=== PATIENT | male | born 1995 | race Caucasian/White ===

== ENCOUNTER 2018-03-08 20:42 | Emergency (ER) | payer OTHER ==
[2018-03-08 21:13] VITALS: O2SAT 99
[2018-03-08 21:40] LABS: Appearance CLEAR (CLEAR); Bilirubin NEGATIVE (NEGATIVE); Blood NEGATIVE Ery/ul (0-5); Glucose NEGATIVE (NEGATIVE); Ketones NEGATIVE (NEGATIVE); Leukocyte Esterase NEGATIVE (NEGATIVE); Nitrite NEGATIVE (NEGATIVE); Protein,Urine Dip NEGATIVE (Negative); Urobilinogen NORMAL mg/dL (0-1)
[2018-03-08] MEDS ORDERED: Sodium Chloride 0.9% 1000 ML 1,000 ML IV STA (22:28)
[2018-03-08] MEDS ORDERED: Sodium Chloride 0.9% 1000 ML 1,000 ML ONE (22:41)
[2018-03-08 23:02] LABS: Lactic Acid 1.9 (0.4-2.0)
[2018-03-08 23:09] LABS: ALBUMIN 4.5 g/dL (3.5-5.0); ALKALINE PHOSPHATASE 116 U/L (38-126); ANION GAP 18.8 MEQ/L (5-15); BLOOD UREA NITROGEN 6 mg/dL (9-20); CHLORIDE 104 mmol/L (98-107); Calcium 9.3 mg/dL (8.4-10.2); Carbon Dioxide 27 mmol/L (22-30); Glucose 109 mg/dL (74-106); LIPASE 211 U/L (23-300); Potassium 3.8 mmol/L (3.5-5.1); SGOT/AST 125 U/L (17-59); SGPT/ALT 150 U/L (0-50); SODIUM 146 mmol/L (137-145); Total Protein 7.4 g/dL (6.3-8.2)
[2018-03-08 23:23] LABS: BASOPHIL % 0.5 % (0.0-0.4); Basophil (Absolute #) 0.04 (0-0.4); Eosinophil (Absolute #) 0.24 (0-0.5); Granulocyte Absolute (ANC) 3.68 (1.4-6.9); Granulocytes % 46.1 % (36.0-66.0); Hematocrit 51.5 % (42-50); Hemoglobin 19.2 gm/dl (12.5-18.0); Lymphocytes % 41.3 % (24.0-44.0); Mean Corpuscular Hemoglobin 37.6 pg (26-32); Mean Platelet Volume 10.1 fl (6-9.5); Monocyte (Absolute #) 0.73 (0.0-1.3); Monocytes % 9.1 % (0.0-12.0); Platelet Count 196 K/mm3 (150-450); Red Cell Distribution Width 13.6 % (11.5-14.0)
[2018-03-08 23:28] LABS: Mean Corpuscular Hgb Concent. 37.3 g/dl (32-36)
--- NOTE | 2018-03-09 00:15 | ERPHSYRPT ---
- History of Present Illness Time Seen by Provider: 03/08/18 21:46 Historian: patient Exam Limitations: no limitations Patient Subjective Stated Complaint: Pt arrives to ER with c/o penis pain that began around 1000 today. Denies injury to area. Denies possiblity of STD. Denies dysuria or pain to palpation. States just randomly hurts "on the shaft and the head". Denies d/c, fever or any other sx. Triage Nursing Assessment: see above Physician History: Pt started c/o suprapubic pain, pressure since 10 AM today. He denies urinary complaints, nausea, vomiting, diarrhea, but states, his symptoms started after having one loose BM, however denies bloody or black stools. He also denies fever , chills, no urethral discharge, he states, he did not have sex for 2 years. Timing/Duration: today, hour(s) (12) Activities at Onset: none Quality: dullness Abdominal Pain Onset Location: suprapubic Pain Radiation: no radiation Severity of Pain-Max: moderate Severity of Pain-Current: moderate Modifying Factors: Improves With: nothing Associated Symptoms: denies symptoms Previous symptoms: no prior history Allergies/Adverse Reactions: No Known Drug Allergies Allergy (Verified 03/08/18 21:13) - Review of Systems Constitutional: No Symptoms Abdominal/Gastrointestinal: Abdominal Pain All Other Systems: Reviewed and Negative - Past Medical History Pertinent Past Medical History: Yes Psycho-Social History: Depression - Past Surgical History Past Surgical History: Yes - Social History Smoking Status: Current some day smoker Exposure to second hand smoke: Yes Alcohol Use: Socially Drug Use: none Patient Lives Alone: No Significant Family History: no pertinent family hx - Nursing Vital Signs Nursing Vital Signs: Initial Vital Signs Temperature 98.2 F 03/08/18 21:08 Pulse Rate 109 H 03/08/18 21:08 Respiratory Rate 18 03/08/18 21:08 Blood Pressure 136/97 03/08/18 21:08 O2 Sat by Pulse Oximetry 99 03/08/18 21:08 Pain Scale Pain Intensity 6 - Physical Exam General Appearance: no apparent distress Eye Exam: eyes nml inspection Ears, Nose, Throat Exam: normal ENT inspection, moist mucous membranes Neck Exam: normal inspection, non-tender Respiratory Exam: normal breath sounds, lungs clear, No chest tenderness Cardiovascular Exam: regular rate/rhythm, normal heart sounds, normal peripheral pulses, No murmur Gastrointestinal/Abdomen Exam: soft, normal bowel sounds, tenderness (mild, suprapubic), hernia (small, umbilical, nontender), No distention, No mass, No guarding, No ecchymosis Male Genitalia Exam: normal genitalia, No hernia, No testicular tenderness, No testicular mass, No penile lesion, No penile discharge Rectal Exam: normal exam, normal rectal tone, No mass, No hemorrhoids, No black stool, No blood, No tenderness Extremity Exam: normal inspection, No calf tenderness Neurologic Exam: alert, oriented x 3, cooperative, normal mood/affect Skin Exam: normal color, warm, dry, No rash Lymphatic Exam: No adenopathy SpO2 Interpretation: normal SpO2: 99 Oxygen Delivery: Room Air - Course Nursing assessment & vital signs reviewed: Yes - CT Exams Abdomen/Pelvis CT Interpretation: Negative, Tele-radiologist Report Ordered Tests: Active Orders 24 hr Category Date Time Status Clean Catch Urine Specimen STAT Care 03/08/18 21:16 Active IV Insertion STAT Care 03/08/18 22:28 Active ABDOMEN AND PELVIS W CONTRAST [CT] Stat Exams 03/08/18 22:28 Taken CBC W DIFF Stat Lab 03/08/18 22:40 Completed CMP Stat Lab 03/08/18 22:40 Completed LIPASE Stat Lab 03/08/18 22:40 Completed Lactic Acid Stat Lab 03/08/18 22:28 Results UA W/RFX UR CULTURE Stat Lab 03/08/18 21:34 Completed Medication Summary Discontinued Medications Generic Name Dose Route Start Last Admin Trade Name Luis Angel PRN Reason Stop Dose Admin Sodium Chloride 1,000 mls @ 999 mls/hr 03/08/18 22:28 03/08/18 22:45 Sodium Chloride 0.9% 1000 Ml IV 03/08/18 23:28 999 mls/hr .Q1H1M STA Administration Sodium Chloride Confirm 03/08/18 22:41 Sodium Chloride 0.9% 1000 Ml Administered 03/08/18 22:42 Dose 1,000 mls @ ud .ROUTE .STK-MED ONE Lab/Rad Data: Laboratory Result Diagrams 03/08/18 22:40 03/08/18 22:40 Laboratory Results 03/08/18 03/08/18 03/08/18 Range/Units 22:40 22:40 22:28 WBC 8.0 (4.0-10.5) K/mm3 RBC 5.10 (4.1-5.6) M/mm3 Hgb 19.2 H (12.5-18.0) gm/dl Hct 51.5 H (42-50) % MCV 101.0 H (78-100) fl MCH 37.6 H (26-32) pg MCHC 37.3 H (32-36) g/dl RDW 13.6 (11.5-14.0) % Plt Count 196 (150-450) K/mm3 MPV 10.1 H (6-9.5) fl Gran % 46.1 (36.0-66.0) % Eos # (Auto) 0.24 (0-0.5) Absolute Lymphs (auto) 3.30 (1.0-4.6) Absolute Monos (auto) 0.73 (0.0-1.3) Lymphocytes % 41.3 (24.0-44.0) % Monocytes % 9.1 (0.0-12.0) % Eosinophils % 3.0 (0.00-5.0) % Basophils % 0.5 (0.0-0.4) % Absolute Granulocytes 3.68 (1.4-6.9) Basophils # 0.04 (0-0.4) Sodium 146 H (137-145) mmol/L Potassium 3.8 (3.5-5.1) mmol/L Chloride 104 (98-107) mmol/L Carbon Dioxide 27 (22-30) mmol/L Anion Gap 18.8 H (5-15) MEQ/L BUN 6 L (9-20) mg/dL Creatinine 0.80 (0.66-1.25) mg/dL Estimated GFR > 60.0 ML/MIN Glucose 109 H (74-106) mg/dL Lactic Acid 1.9 (0.4-2.0) Calcium 9.3 (8.4-10.2) mg/dL Total Bilirubin 1.20 (0.2-1.3) mg/dL AST 125 H (17-59) U/L ALT 150 H (0-50) U/L Alkaline Phosphatase 116 (38-126) U/L Serum Total Protein 7.4 (6.3-8.2) g/dL Albumin 4.5 (3.5-5.0) g/dL Lipase 211 (23-300) U/L Ur Collection Type Urine Color (YELLOW) Urine Appearance (CLEAR) Urine pH (5-6) Ur Specific Conway (1.005-1.025) Urine Protein (Negative) Urine Ketones (NEGATIVE) Urine Blood (0-5) Bill/ul Urine Nitrite (NEGATIVE) Urine Bilirubin (NEGATIVE) Urine Urobilinogen (0-1) mg/dL Ur Leukocyte Esterase (NEGATIVE) Urine Culture Reflexed (NO) Urine Glucose (NEGATIVE) mg/dL Specimen Received 03/08/18 Range/Units 21:34 WBC (4.0-10.5) K/mm3 RBC (4.1-5.6) M/mm3 Hgb (12.5-18.0) gm/dl Hct (42-50) % MCV (78-100) fl MCH (26-32) pg MCHC (32-36) g/dl RDW (11.5-14.0) % Plt Count (150-450) K/mm3 MPV (6-9.5) fl Gran % (36.0-66.0) % Eos # (Auto) (0-0.5) Absolute Lymphs (auto) (1.0-4.6) Absolute Monos (auto) (0.0-1.3) Lymphocytes % (24.0-44.0) % Monocytes % (0.0-12.0) % Eosinophils % (0.00-5.0) % Basophils % (0.0-0.4) % Absolute Granulocytes (1.4-6.9) Basophils # (0-0.4) Sodium (137-145) mmol/L Potassium (3.5-5.1) mmol/L Chloride (98-107) mmol/L Carbon Dioxide (22-30) mmol/L Anion Gap (5-15) MEQ/L BUN (9-20) mg/dL Creatinine (0.66-1.25) mg/dL Estimated GFR ML/MIN Glucose (74-106) mg/dL Lactic Acid (0.4-2.0) Calcium (8.4-10.2) mg/dL Total Bilirubin (0.2-1.3) mg/dL AST (17-59) U/L ALT (0-50) U/L Alkaline Phosphatase (38-126) U/L Serum Total Protein (6.3-8.2) g/dL Albumin (3.5-5.0) g/dL Lipase (23-300) U/L Ur Collection Type VOID Urine Color YELLOW (YELLOW) Urine Appearance CLEAR (CLEAR) Urine pH 6.0 (5-6) Ur Specific Conway 1.010 (1.005-1.025) Urine Protein NEGATIVE (Negative) Urine Ketones NEGATIVE (NEGATIVE) Urine Blood NEGATIVE (0-5) Bill/ul Urine Nitrite NEGATIVE (NEGATIVE) Urine Bilirubin NEGATIVE (NEGATIVE) Urine Urobilinogen NORMAL (0-1) mg/dL Ur Leukocyte Esterase NEGATIVE (NEGATIVE) Urine Culture Reflexed NO (NO) Urine Glucose NEGATIVE (NEGATIVE) mg/dL Specimen Received 03/08/180 - Progress Progress: unchanged Progress Note: 03/09/18 00:36 I explained all findings to patient and his mother, suggested to follow up with his physician next week, and possibly consult a surgeon regarding to his umbilical hernia. He is being discharged in good condition. Counseled pt/family regarding: lab results, diagnosis, need for follow-up, rad results - Departure Time of Disposition: 00:38 Departure Disposition: Home Clinical Impression: Abdominal pain Qualifiers: Abdominal location: lower abdomen, unspecified Qualified Code(s): R10.30 - Lower abdominal pain, unspecified Umbilical hernia Qualifiers: Obstruction and gangrene presence: without obstruction or gangrene Qualified Code(s): K42.9 - Umbilical hernia without obstruction or gangrene Condition: Stable Critical Care Time: No Referrals: JESSE OLMEDO TECHNICAL ILLUSTRATOR [Primary Care Provider] - Instructions: Umbilical Hernia, Adult Additional Instructions: Return if severe pain, vomiting or pain, fever> 102 F, otherwise follow up with your physician next week!
[2018-03-09 00:41] VITALS: BP 128/94; PULSE 98
--- NOTE | 2018-03-09 09:01 | XRAY ---
Indication: Suprapubic pain. No known injury. Multiple contiguous axial images obtained through the abdomen and pelvis using 80 cc Isovue 370 contrast only. Comparison: None Lung bases demonstrate minimal bilateral dependent atelectasis. No infiltrate or effusion. Heart is not enlarged. Noncontrasted stomach and bowel loops appear nonobstructed. Normal appendix. No free fluid/air. Mild diffuse fatty liver and 1 cm right adrenal adenoma. Remaining liver, gallbladder, pancreas, spleen, adrenal glands, kidneys, ureters, bladder, and aorta appear unremarkable. No pathologic retroperitoneal lymphadenopathy. Osseous structures intact. Bilateral L5 spondylolysis without spondylolisthesis. Small fatty umbilical hernia. Impression: 1. No acute intra-abdominal/pelvic abnormalities. 2. Incidental fatty liver, right adrenal adenoma, fatty umbilical hernia, and L5 spondylolysis without spondylolisthesis. Comment: Preliminary interpretation was made by [facility]. Incidental findings not reported. CT DI 14.21
== END 2018-03-09 00:48 | disposition home or self-care (01) ==
LOC: ED 20:42
DX: R10.30 Lower abdominal pain, unspecified (principal); K42.9 Umbilical hernia without obstruction or gangrene
CPT/HCPCS: 36000; 36415; 74177; 80053; 81002; 83605; 83690; 85025; 96374; 99284

== ENCOUNTER 2024-07-01 17:14 | Emergency (ER) | payer BC, OTHER ==
[2024-07-01 17:39] VITALS: BP 143/96; PULSE 105; TEMP 99.1
[2024-07-01 18:17] LABS: Absolute Neutrophil Ct (ANC) 4.02 x10^3/uL (1.78-5.38); BASOPHIL % 0.5 % (0.2-1.2); Basophil (Absolute #) 0.03 x10^3/uL (0.01-0.08); Eosinophil (Absolute #) 0.13 x10^3/uL (0.04-0.54); Hematocrit 43.8 % (40.1-51.0); Hemoglobin 15.7 g/dL (13.7-17.5); IMMATURE GRAN # 0.01 x10^3u/L (0.001-0.031); IMMATURE GRAN % 0.2 % (0.001-0.429); Lymphocyte (Absolute #) 1.86 x10^3/uL (1.32-3.57); Lymphocytes % 28.3 % (21.8-53.1); Mean Cell Volume 98.4 fL (79.0-92.2); Mean Corpuscular Hemoglobin 35.3 pg (25.7-32.2); Mean Corpuscular Hgb Concent. 35.8 g/dL (32.3-36.5); Mean Platelet Volume 8.9 fL (9.4-12.4); Monocyte (Absolute #) 0.52 x10^3/uL (0.30-0.82); Monocytes % 7.9 % (5.3-12.2); Neutrophil % 61.1 % (34.0-67.9); Platelet Count 188 x10^3/uL (163-337); Red Blood Count 4.45 x10^6/uL (4.63-6.08); Red Cell Distribution Width 13.3 % (11.6-14.4); White Blood Count 6.6 x10^3/uL (4.23-9.07)
--- NOTE | 2024-07-01 18:22 | ERPHSYRPT ---
- History of Present Illness Time Seen by Provider: 07/01/24 18:03 Source: patient, police Exam Limitations: no limitations Patient Subjective Stated Complaint: pt was pulled over and intoxicated so police brought him here for medical clearance to go to care home Triage Nursing Assessment: Pt brought to the ER by law enforcement, tachycardic, hypertensive, denies pain, daily drinker, pulses normal, skin n/w/d, walked into the ER with a steady gait and without assistance, no difficulties breathing, doesn't appear to be in any distress Physician History: Pt was brought in by police for alleged DUI clearance and has no medical complaints or symptoms. He denies SIHI, and denies any falls, MVA, trauma of any kind. Pt denies any other drug use or medications. He reports no suicidal ideations and there is no reason to suspect any ingestions. Pt does report alcohol consumption He has no abrasions or indications for trauma on exam . No LOC. PT has no neuro sensorimotor deficits . No pronator drift . No facial asymetry. 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 full ROm all ext without pain. normal strength. Fundi benign. Teeth intact HEENT normal. CHest clear nontender. Ht reg without M. Abd soft nontender without peritoneal signs. No chest pain or shortness of breath or dizziness. Timing/Duration: today Modifying Factors: Improves With: nothing Associated Symptoms: denies symptoms Allergies/Adverse Reactions: No Known Drug Allergies Allergy (Verified 07/01/24 17:38) Home Medications: No Reportable Medications [No Reported Medications] 07/01/24 [History] Hx Influenza Vaccination/Date Given: No Hx Pneumococcal Vaccination/Date Given: No Travel Risk - International Travel Have you traveled outside of the country in past 3 weeks: No - Emerging Infectious Disease Are you exhibiting symptoms associated with any current EIDs: No - Review of Systems Constitutional: No Fever, No Chills Eyes: No Symptoms Ears, Nose, & Throat: No Symptoms Respiratory: No Cough, No Dyspnea Cardiac: No Chest Pain, No Edema, No Syncope Abdominal/Gastrointestinal: No Abdominal Pain, No Nausea, No Vomiting, No Diarrhea Genitourinary Symptoms: No Dysuria Musculoskeletal: No Back Pain, No Neck Pain Skin: No Symptoms, No Rash Neurological: No Symptoms, No Dizziness, No Focal Weakness, No Sensory Changes Psychological: No Symptoms Endocrine: No Symptoms Hematologic/Lymphatic: No Symptoms Immunological/Allergic: No Symptoms All Other Systems: Reviewed and Negative - Past Medical History Pertinent Past Medical History: Yes Psycho-Social History: Depression - Past Surgical History Past Surgical History: Yes Significant Family History: no pertinent family hx - Social History Smoking Status: Current some day smoker Exposure to second hand smoke: Yes Alcohol Use: Socially Drug Use: none Patient Lives Alone: No - Social Determinants of Health Will the patient participate in the screening: Yes Do you worry about a steady place to live?: No Do you have any problems with any of the following?: No known problems In the past 12 months,have you had to go without utilities?: No Transportation Issues: No Has anyone in your support network made you feel unsafe?: No Have you or anyone in your house had to go without enough: No - Nursing Vital Signs Nursing Vital Signs: Initial Vital Signs Temperature 99.1 F 07/01/24 17:30 Pulse Rate 105 H 07/01/24 17:30 Blood Pressure 143/96 07/01/24 17:30 O2 Sat by Pulse Oximetry 100 07/01/24 17:30 Pain Scale Pain Intensity 0 - Physical Exam General Appearance: no apparent distress, alert Eye Exam: PERRL/EOMI, eyes nml inspection Ears, Nose, Throat Exam: normal ENT inspection, TMs normal, pharynx normal, moist mucous membranes Neck Exam: normal inspection, non-tender, supple, full range of motion Respiratory Exam: normal breath sounds, lungs clear, No respiratory distress Cardiovascular Exam: regular rate/rhythm, normal heart sounds, normal peripheral pulses Gastrointestinal/Abdomen Exam: soft, normal bowel sounds, No tenderness, No mass Rectal Exam: deferred Back Exam: normal inspection, normal range of motion, No CVA tenderness, No vertebral tenderness Extremity Exam: normal inspection, normal range of motion, pelvis stable Neurologic Exam: alert, oriented x 3, cooperative, human resources receptionist II-XII nml as tested, normal mood/affect, nml cerebellar function, nml station & gait, sensation nml, No motor deficits, No disoriented, No confusion Skin Exam: normal color, warm, dry, No rash Lymphatic Exam: No adenopathy SpO2 Interpretation: normal SpO2: 100 O2 Delivery: Room Air Ordered Tests: Active Orders 24 hr Category Date Time Status CBC W DIFF Stat Lab 07/01/24 18:00 Ordered CMP Stat Lab 07/01/24 18:00 Ordered ETHYL ALCOHOL Stat Lab 07/01/24 18:00 Ordered - Progress Counseled pt/family regarding: drug and/or alcohol abuse, diagnosis, need for follow-up Medical Desision Making - Discussion of managment Reviewed:: Test results, Need for additional workup Agreed on:: Treatment plan, need for follow-up - Diagnostic Testing Diagnostic test were ordered, analyzed, and reviewed by me: No - Risk of complications The pt has a mod risk of morbidity or mortality based on: Need for prescription drug management - Departure Departure Disposition: Halfway/Long Term Clinical Impression: Elevated blood pressure reading Clinical Impression: (Ruled Out): Hypertension Condition: Good Critical Care Time: No Referrals: JESSE OLMEDO [employer] MAINTAINER [employer]CTION [Primary Care Provider] - Follow up/PCP as directed Instructions: High Blood Pressure ED, Effects of Alcohol on Your Health, Alcohol Use Disorder ED Additional Instructions: followup with your drAubrey to recheck on your blood pressure - return meantime if any symptoms or concerns especially such as chest pain, dizziness, headache, vomiting, stomach pain, or shortness of breath. Seek counselling for alcohol use .
[2024-07-01 18:30] LABS: ALBUMIN 4.3 g/dL (3.5-5.0); ANION GAP 16.7 MEQ/L (5-15); BILIRUBIN,TOTAL 0.3 mg/dL (0.2-1.3); Calcium 9.1 mg/dL (8.4-10.2); Creatinine 1 0.75 mg/dL (0.66-1.25); EST GLOMERULAR FILTRATION RATE 123.7 ML/MIN; Potassium 3.8 mmol/L (3.5-5.1); Total Protein 7.1 g/dL (6.3-8.2)
[2024-07-01 18:42] VITALS: O2SAT 99
== END 2024-07-01 18:48 | disposition home or self-care (01) ==
LOC: ED 17:14
DX: Z02.89 Encounter for other administrative examinations (principal); R03.0 Elevated blood-pressure reading, without diagnosis of hypertension; Z72.0 Tobacco use
CPT/HCPCS: 36415; 80053; 82077; 85025; 99283